=== PATIENT | female | born 1990 | race African-American/Black ===

== ENCOUNTER 2022-03-29 08:56 | Emergency (ER) | payer MEDICAID ==
[~2022-03-29] VITALS: Ht 167.6 cm; Wt 108.0 kg
[2022-03-29 09:03] VITALS: BP 172/99
[2022-03-29] MEDS ORDERED: LIDOCAINE HCL/PF 1% 10 MG/ML 5ML VIAL INFIL ONE (10:30)
[2022-03-29] MEDS ORDERED: ACETAMINOPHEN 325MG TABLET PO ONE (10:30)
[2022-03-29] MEDS ORDERED: BACITRACIN ZINC OINT UDPKT TOP ONE (10:30)
[2022-03-29] MEDS ORDERED: AMOX1TAB16 MT (11:59)
[2022-03-29] MEDS ORDERED: BO1 TP (11:59)
== END 2022-03-29 12:15 | disposition home or self-care (01) ==
LOC: ER 09:33
DX: O26.892 Other specified pregnancy related conditions, second trimester (principal); L03.012 Cellulitis of left finger; Z3A.26 26 weeks gestation of pregnancy
CPT/HCPCS: 10060; 99283; J3490